=== PATIENT | male | born 1940 | race Caucasian/White ===

== ENCOUNTER 2016-06-28 17:13 | Inpatient (IN) | payer MEDICARE, BC ==
--- NOTE | 2016-06-28 18:24 | EDM.PDOC ---
ED HPI Trauma - General Chief Complaint: Lower Extremity Injury/Pain Stated Complaint: SWOLLEN L FOOT Time Seen by Provider: 06/28/16 18:18 Source: Reports: Patient History Limitations: Reports: No limitations - History of Present Illness INITIAL COMMENTS - FREE TEXT/NARRATIVE: pt arrived with a markrdly swollen left leg. He was walking about 1 week ago and he felt something snap in his left thigh. The leg got very black and blue nd has grdually gotten better. He now has alot of swelling in the lower left leg. Occurred When: last week Occurred Where: home Method of Injury: unknown Severity: moderate Pain/Injury Location: Reports: lower extremity, right Consciousness: Reports: no loss of consciousness Associated Symptoms: Reports: denies other symptoms Allergies/ADRs: Allergies No Known Allergies Allergy (Verified 08/07/15 14:58) Home Medications: Ambulatory Orders Aspirin [Halfprin] 81 mg PO BEDTIME 07/22/15 [Confirmed 06/28/16] Enalapril Maleate [Vasotec] 20 mg PO BEDTIME 07/22/15 [Confirmed 06/28/16] Terazosin HCl [Terazosin] 5 mg PO BEDTIME 07/22/15 [Confirmed 06/28/16] Past Medical History HEENT History: Reports: Impaired vision Cardiovascular History: Reports: Hypertension, Pacemaker Gastrointestinal History: Reports: GERD Genitourinary History: Reports: BPH Other Genitourinary History: slow urination - Infectious Disease History Infectious Disease History: Reports: Chicken pox, Measles, Mumps - Past Surgical History HEENT Surgical History: Reports: Cataract surgery, Oral surgery GI Surgical History: Reports: Appendectomy, Hernia, inguinal Social & Family History - Family History Cardiac: Reports: CAD - Tobacco Use Smoking Status *Q: Former Smoker - Caffeine Use Caffeine Use: Reports: Coffee - Alcohol Use Days Per Week of Alcohol Use: 1 Number of Drinks Per Day: 1 Total Drinks Per Week: 1 - Recreational Drug Use Recreational Drug Use: No Review of Systems - Review of Systems Review Of Systems: See Below Constitutional: Reports: no symptoms Eyes: Reports: no symptoms Ears: Reports: no symptoms Nose: Reports: no symptoms Mouth/Throat: Reports: no symptoms Respiratory: Reports: No Symptoms Cardiovascular: Reports: no symptoms GI/Abdominal: Reports: No symptoms Genitourinary: Reports: no symptoms Musculoskeletal: Reports: other (pain and swelling in the left leg. ) Skin: Reports: no symptoms Neurological: Reports: No Symptoms Psychiatric: Reports: no symptoms Trauma Exam - Physical Exam Exam: See Below Text/Narrative:: pt arrived with a history of a swollen left leg. pt had a ripping sensation in his thigh area on the left about 1 week ago and he became very bruised. He now has become swollen in the entire leg. Exam Limited By: No limitations General Appearance: Reports: alert, anxious Head: Reports: atraumatic Eyes: bilateral eye: EOMI, normal inspection, PERRL Ears: Reports: normal TMs Nose: Reports: normal inspection Throat/Mouth: Reports: Normal inspection Neck: Reports: non-tender Respiratory Exam: Reports: no respiratory distress Cardiovascular: Reports: regular rate, rhythm GI/Abdominal: Reports: soft, non tender (Male) Exam: Deferred Rectal (Males) Exam: Deferred Back: Reports: normal inspection Extremities: Reports: other (left leg is markedly swollen. ) Neurologic: Reports: alert, oriented x 3 Course - Vital Signs Last Recorded V/S: Last Vital Signs Temp 37.1 C 06/28/16 17:25 Pulse 107 H 06/28/16 17:25 Resp 16 06/28/16 17:25 BP 186/97 H 06/28/16 17:25 Pulse Ox 98 06/28/16 17:25 - Orders/Labs/Meds Orders: Active Orders 24 hr Category Date Time Status Chest 2V [CR] Stat Exams 06/28/16 19:05 Taken VL Duplex Lwr Ext Veins Ltd Lt [US] Stat Exams 06/28/16 18:17 Taken Sodium Chloride 0.9% [Normal Saline] 1,000 ml Med 06/28/16 19:00 Active IV ASDIRECTED Sodium Chloride 0.9% [Saline Flush] Med 06/28/16 19:00 Active 10 ml FLUSH ASDIRECTED PRN Saline Lock Insert [OM.PC] Routine Oth 06/28/16 19:00 Ordered Medication Orders Sodium Chloride (Normal Saline) 1,000 mls @ 150 mls/hr IV ASDIRECTED ELVIN Sodium Chloride (Saline Flush) 10 ml FLUSH ASDIRECTED PRN PRN Reason: Keep Vein Open Labs: Laboratory Tests 06/28/16 06/28/16 Range/Units 18:27 18:27 WBC 5.9 (4.5-11.0) K/uL RBC 4.01 L (4.30-5.90) M/uL Hgb 11.4 L (12.0-15.0) g/dL Hct 35.0 L (40.0-54.0) % MCV 87 (80-98) fL MCH 28 (27-31) pg MCHC 33 (32-36) % Plt Count 276 (150-400) K/uL Neut % (Auto) 62 (36-66) % Lymph % (Auto) 21 L (24-44) % Bee % (Auto) 12 H (2-6) % Eos % (Auto) 5 H (2-4) % Baso % (Auto) 0 (0-1) % Sodium 139 L (140-148) mmol/L Potassium 3.9 (3.6-5.2) mmol/L Chloride 103 (100-108) mmol/L Carbon Dioxide 27 (21-32) mmol/L Anion Gap 12.9 (5.0-14.0) mmol/L BUN 18 (7-18) mg/dL Creatinine 1.4 H (0.8-1.3) mg/dL Est Cr Clr Drug Dosing 44.19 mL/min Estimated GFR (MDRD) 49 L (>60) Glucose 102 (74-106) mg/dL Calcium 8.2 L (8.5-10.1) mg/dL Total Bilirubin 0.6 (0.2-1.0) mg/dL AST 32 (15-37) U/L ALT 24 (12-78) U/L Alkaline Phosphatase 111 (46-116) U/L Total Protein 7.3 (6.4-8.2) g/dL Albumin 2.8 L (3.4-5.0) g/dL Globulin 4.5 H (2.3-3.5) g/dL Albumin/Globulin Ratio 0.6 L (1.2-2.2) Meds: Medications Generic Name Dose Route Start Last Admin Trade Name Freq PRN Reason Stop Dose Admin Sodium Chloride 1,000 mls @ 150 mls/hr 06/28/16 19:00 Normal Saline IV ASDIRECTED ELVIN Sodium Chloride 10 ml 06/28/16 19:00 Saline Flush FLUSH ASDIRECTED PRN Keep Vein Open - Re-Assessments/Exams Free Text/Narrative Re-Assessment/Exam: 06/28/16 19:44 creatnine is 1.4 and his gfr is 49. He had an US which revealed a clot the full length of the leg. Departure - Departure Time of Disposition: 19:45 Disposition: Admitted As Inpatient 65 Condition: fair Clinical Impression: DVT (deep venous thrombosis), Renal insufficiency, mild Forms: ED Department Discharge Care Plan Goals: admit to [facility] - My Orders Last 24 Hours: My Active Orders 06/28/16 18:17 VL Duplex Lwr Ext Veins Ltd Lt [US] Stat 06/28/16 19:00 Sodium Chloride 0.9% [Normal Saline] 1,000 ml IV ASDIRECTED Sodium Chloride 0.9% [Saline Flush] 10 ml FLUSH ASDIRECTED PRN Saline Lock Insert [OM.PC] Routine 06/28/16 19:05 Chest 2V [CR] Stat - Assessment/Plan Last 24 Hours: My Active Orders 06/28/16 18:17 VL Duplex Lwr Ext Veins Ltd Lt [US] Stat 06/28/16 19:00 Sodium Chloride 0.9% [Normal Saline] 1,000 ml IV ASDIRECTED Sodium Chloride 0.9% [Saline Flush] 10 ml FLUSH ASDIRECTED PRN Saline Lock Insert [OM.PC] Routine 06/28/16 19:05 Chest 2V [CR] Stat
[2016-06-28] MEDS ORDERED: Sodium Chloride 0.9% 1,000 ML IV SCH (19:00)
[2016-06-28] MEDS ORDERED: Sodium Chloride 0.9% 10 ML Syringe FLUSH PRN (19:00)
[2016-06-28] MEDS ORDERED: Morphine 2 MG/ML Syringe IVPUSH PRN (20:57)
[2016-06-28] MEDS ORDERED: Heparin Sodium 5,000 Units/ML Vial IVPUSH ONE (20:57)
[2016-06-28] MEDS ORDERED: Bisacodyl 5 MG Tab PO PRN (20:57)
[2016-06-28] MEDS ORDERED: Albuterol 0.083% 2.5 MG/3 ML Neb Soln NEB PRN (20:57)
[2016-06-28] MEDS ORDERED: Temazepam 15 MG Cap PO PRN (20:57)
[2016-06-28] MEDS ORDERED: LORazepam 2 MG/ML MDV IV PRN (20:57)
[2016-06-28] MEDS ORDERED: Acetaminophen 325 MG Tab PO PRN (20:57)
[2016-06-28] MEDS ORDERED: Ondansetron 4 MG Tab.DIS PO PRN (20:57)
[2016-06-28] MEDS ORDERED: Docusate Sodium 100 MG Cap PO PRN (20:57)
[2016-06-28] MEDS ORDERED: oxyCODONE 5 MG Tab PO PRN (20:57)
[2016-06-28] MEDS: Terazosin 5 MG Cap PO SCH (22:59)
[2016-06-28] MEDS: Sodium Chloride 0.9% 1,000 ML IV SCH (23:00)
[2016-06-28] MEDS: Enalapril 5 MG Tab ONE ×2 (23:00→23:04)
--- NOTE | 2016-06-28 23:29 | PCM.HP ---
H&P History of Present Illness - General Admit Problem/Dx: Admission Diagnosis/Problem Admission Diagnosis/Problem DVT, Deep venous thrombosis of lower extremity Source of Information: Patient, Family () History Limitations: Reports: No limitations - History of Present Illness Initial Comments - Free Text/Narative: pt arrived with a markrdly swollen left leg. He was walking about 1 week ago and he felt something snap in his left thigh. The leg got very black and blue and has gradually gotten better. He now has a lot of swelling in the lower left leg. Occurred When: last week 06/28/16 19:44 creatnine is 1.4 and his gfr is 49. He had an US which revealed a clot the full length of the leg. Plan admit to hospital Duration of Symptoms: Reports: Getting worse Location: Reports: lower extremity, left Quality: Reports: Pressure Severity: mild Improves with: Reports: None Worsens with: Reports: None Context: Reports: other (Reports injury 7-10 days ago) Associated Symptoms: Reports: denies other symptoms - Related Data Allergies/Adverse Reactions: Allergies Allergy/AdvReac Type Severity Reaction Status Date / Time No Known Allergies Allergy Verified 08/07/15 14:58 Home Medications: Home Meds Aspirin [Halfprin] 81 mg PO BEDTIME 07/22/15 [History] Enalapril Maleate [Vasotec] 20 mg PO BEDTIME 07/22/15 [History] Terazosin HCl [Terazosin] 5 mg PO BEDTIME 07/22/15 [History] Past Medical History HEENT History: Reports: Impaired vision Cardiovascular History: Reports: Hypertension, Pacemaker Gastrointestinal History: Reports: GERD Genitourinary History: Reports: BPH Other Genitourinary History: slow urination - Infectious Disease History Infectious Disease History: Reports: Chicken pox, Measles, Mumps - Past Surgical History HEENT Surgical History: Reports: Cataract surgery, Oral surgery GI Surgical History: Reports: Appendectomy, Hernia, inguinal Social & Family History - Family History Cardiac: Reports: CAD - Tobacco Use Smoking Status *Q: Former Smoker - Caffeine Use Caffeine Use: Reports: Coffee - Alcohol Use Days Per Week of Alcohol Use: 1 Number of Drinks Per Day: 1 Total Drinks Per Week: 1 - Recreational Drug Use Recreational Drug Use: No H&P Review of Systems - Review of Systems: Review Of Systems: See Below General: Reports: no symptoms HEENT: Reports: no symptoms Pulmonary: Reports: No Symptoms Cardiovascular: Reports: no symptoms Gastrointestinal: Reports: No symptoms Genitourinary: Reports: no symptoms Musculoskeletal: Reports: no symptoms Skin: Reports: other (Clear discharge from tiny red wounds of the left lower leg ) Psychiatric: Reports: no symptoms Neurological: Reports: No Symptoms Hematologic/Lymphatic: Reports: no symptoms Immunologic: Reports: no symptoms Exam - Exam Exam: See Below - Vital Signs Vital Signs: Last Vital Signs Temp 37.3 C 06/28/16 21:00 Pulse 102 H 06/28/16 21:00 Resp 16 06/28/16 21:00 BP 158/102 H 06/28/16 22:59 Pulse Ox 98 06/28/16 21:00 Weight: 84.9 kg - Exam General: alert, oriented, cooperative HEENT: PERRLA, Conjunctiva clear, EACs clear, EOMI, Hearing intact, Mucosa moist & pink, Nares patent, Normal nasal septum, Posterior pharynx clear, Pupils equal, Pupils reactive, Other (Dentures are noted) Neck: supple, trachea midline, 2 Lungs: Clear to auscultation, Normal respiratory effort Cardiovascular: regular rate, regular rhythm, other (Pacemaker noted left upper chest) Abdomen: normal bowel sounds, soft Back Exam: normal inspection, full range of motion Extremities: other (Left leg 2 times the size of the right, skin is tense, clear discharge from red areas of the left lower leg. Pulses in the foot intact and equal to that of the right) Peripheral Pulses: 2+: dorsalis pedis (L), dorsalis pedis (R) Skin: warm, dry, petechia (Left lower leg), other (Clear discharge left lower leg) Neurological: strength equal bilateral Psychiatric: alert, normal affect, normal mood - Patient Data Lab Results last 24 hrs: Laboratory Results - last 24 hr 06/28/16 Range/Units 21:19 PT 11.8 (9.5-12.0) sec INR 1.11 (0.80-1.20) Result Diagrams: 06/28/16 18:27 06/28/16 18:27 *Q Meaningful Use (ADM) - VTE *Q VTE Criteria *Q: - Stroke *Q Stroke Criteria *Q: - AMI *Q AMI Criteria *Q: - Problem List (1) DVT (deep venous thrombosis) SNOMED Code(s): 689195194 ICD Code: I82.409 - ACUTE EMBOLISM AND THOMBOS UNSP DEEP VN UNSP LOWER EXTREMITY Status: Acute Priority: High Current Visit: Yes Qualifiers: DVT location: lower extremity Affected thrombotic vein of extremity: unspecified lower extremity distal vein Laterality: left Chronicity: acute Qualified Code(s): I82.4Z2 - Acute embolism and thrombosis of unspecified deep veins of left distal lower extremity Problem List Initiated/Reviewed/Updated: Yes Orders Last 24hrs: Active Orders 24 hr Category Date Time Status Patient Status [ADT] Routine ADT 06/28/16 20:57 Active Bedrest Bathroom Privileges [RC] ASDIRECTED Care 06/28/16 20:57 Active Cardiac Monitoring [RC] .As Directed Care 06/28/16 20:57 Active Intake and Output [RC] QSHIFT Care 06/28/16 20:57 Active Oxygen Therapy [RC] PRN Care 06/28/16 20:57 Active RT Aerosol Therapy [RC] ASDIRECTED Care 06/28/16 20:57 Active VTE/DVT Education [RC] PER UNIT ROUTINE Care 06/28/16 20:57 Active Vital Signs [RC] Q4H Care 06/28/16 20:57 Active Regular Diet [DIET] Diet 06/28/16 Breakfast Active Ang Chest [CT] Routine Exams 06/29/16 09:10 Ordered BASIC METABOLIC PANEL,BMP [CHEM] AM Lab 06/29/16 05:11 Ordered Guaiac [OCCULT BLOOD DIAGNOSTIC] [OP] Routine Lab 06/28/16 21:55 Uncollected INR,PT,PROTHROMBIN TIME [COAG] AM Lab 06/29/16 05:11 Ordered UA W/MICROSCOPIC [URIN] Routine Lab 06/28/16 21:56 Ordered Acetaminophen [Tylenol] Med 06/28/16 20:57 Active 650 mg PO Q4H PRN Albuterol [Proventil Neb Soln] Med 06/28/16 20:57 Active 2.5 mg NEB Q4H PRN Bisacodyl [Dulcolax] Med 06/28/16 20:57 Active 5 mg PO DAILY PRN Docusate Sodium [Colace] Med 06/28/16 20:57 Active 100 mg PO BID PRN Docusate Sodium/Sennosides [Senna Plus] Med 06/28/16 20:57 Active 1 tab PO BID PRN Enalapril [Vasotec] Med 06/28/16 21:00 Active 20 mg PO BEDTIME Heparin Sodium/D5W [Heparin 25,000 Units in D5W 500 ML] Med 06/28/16 20:57 Active 25,000 units in 500 ml IV TITRATE LORazepam [Ativan] Med 06/28/16 20:57 Active 1 mg IV Q6H PRN Morphine Med 06/28/16 20:57 Active 2 mg IVPUSH Q2H PRN Ondansetron [Zofran ODT] Med 06/28/16 20:57 Active 4 mg PO Q6H PRN Sodium Chloride 0.9% [Normal Saline] 1,000 ml Med 06/28/16 20:57 Active IV ASDIRECTED Temazepam [Restoril] Med 06/28/16 20:57 Active 15 mg PO BEDTIME PRN Terazosin [Hytrin] Med 06/28/16 21:00 Active 5 mg PO BEDTIME oxyCODONE Med 06/28/16 20:57 Active 5 mg PO Q4H PRN Resuscitation Status Routine Resus Stat 06/28/16 20:05 Ordered Medication Orders Acetaminophen (Tylenol) 650 mg PO Q4H PRN PRN Reason: Pain (Mild 1-3)/fever Albuterol (Proventil Neb Soln) 2.5 mg NEB Q4H PRN PRN Reason: Shortness Of Breath/wheezing Bisacodyl (Dulcolax) 5 mg PO DAILY PRN PRN Reason: Constipation Docusate Sodium (Colace) 100 mg PO BID PRN PRN Reason: Constipation Enalapril Maleate (Vasotec) 20 mg PO BEDTIME ELVIN Last Admin: 06/28/16 23:04 Dose: Not Given Heparin Sodium/Dextrose (Heparin 25,000 Units In D5w 500 Ml) 25,000 units in 500 mls @ 25.47 mls/hr IV TITRATE ELVIN; 15 UNITS/KG/HR PRN Reason: Protocol Sodium Chloride (Normal Saline) 1,000 mls @ 100 mls/hr IV ASDIRECTED ELVIN Last Admin: 06/28/16 23:00 Dose: 100 mls/hr Lorazepam (Ativan) 1 mg IV Q6H PRN PRN Reason: Nausea/Vomiting Morphine Sulfate (Morphine) 2 mg IVPUSH Q2H PRN PRN Reason: Pain (severe 7-10) Ondansetron HCl (Zofran Odt) 4 mg PO Q6H PRN PRN Reason: Nausea able to take PO Oxycodone HCl (Oxycodone) 5 mg PO Q4H PRN PRN Reason: Pain (moderate 4-6) Senna/Docusate Sodium (Senna Plus) 1 tab PO BID PRN PRN Reason: Constipation Sodium Chloride (Saline Flush) 10 ml FLUSH ASDIRECTED PRN PRN Reason: Keep Vein Open Last Admin: 06/28/16 19:52 Dose: 10 ml Temazepam (Restoril) 15 mg PO BEDTIME PRN PRN Reason: Sleep Terazosin HCl (Hytrin) 5 mg PO BEDTIME [facility] Last Admin: 06/28/16 22:59 Dose: 5 mg Assessment/Plan Comment:: ASSESSMENT / PLAN -This is a 76 year old male present to ER with complaints of leg edema, started about 7 to 10 days ago, he decided to come to the hospital/ER for further care and treatment. He reports was walking about 7 to 10 days ago, when felt a "tearing sensation" in the left leg. area was black and blue, this resolved, then about 2 days ago, started to have swelling. leg is not painful, denies any chest pain or shortness of breath. In ER had a venous doppler, which show an emboli extending from ankle to thigh. Plan -Admit to [address] [place] [address] for further monitoring diagnosis; DVT -Heparin drip started with bolus, then wt bases protocol. -Telemetry -IV fluids for rehydration NS at 100 mL per hour -Advise to notify nurses of any chest pain or other symptoms -Order for a serial Ptt, INR - a.m. labs: CBC, BMP, inr, ptt - chest ct angio in am Maintenance issues -Orders home meds: htn -Nutrition: Regular diet -Coy catheter not indicated at this time -DVT: heparin iv drip per protocol -GI prophalix; Protonix po daily CODE STATUS: Full Admission status: Admit to [address] [place] [address] Admission justification. This patient will be admitted for inpatient services and is medically appropriate meeting medical necessity for inpatient admission as outlined in my documentation. I reasonably expect the patient will require inpatient services that span. Time over 2 midnights. I reasonably expect this patient to be discharged or transferred within 96 hours after admission to the critical access hospital Disposition;home with , Zee Primary care provider:Dr. Daniel Beyer
[2016-06-28] MEDS ORDERED: Heparin Sodium 5,000 Units/ML Vial ONE (23:45)
[2016-06-28] MEDS: Heparin Sodium/D5W 25,000 UNITS/500 ML BAG IV SCH (23:54)
[2016-06-29] MEDS: Sodium Chloride 0.9% 1,000 ML IV SCH (05:50)
[2016-06-29] MEDS: Heparin Sodium 5,000 Units/ML Vial IVPUSH PRN ×2 (06:40→13:41)
[2016-06-29] MEDS ORDERED: Pantoprazole 40 MG Vial IVPUSH SCH (07:30)
--- NOTE | 2016-06-29 08:53 | CR ---
Heart size within normal limits. AICD device with 2 leads. Right lung is clear. Streaky density with in the lingula could indicate atelectasis only. Developing infiltrate not excluded.
--- NOTE | 2016-06-29 10:00 | PCM.PN ---
- General Info Date of Service: 06/29/16 Functional Status: Reports: pain controlled, tolerating diet - Review of Systems Pulmonary: Reports: shortness of breath Musculoskeletal: Reports: leg pain Systems Review Comment:: No acute events since the time of admission. No significant left leg pain but still has significant left leg swelling. No bleeding issues while on the heparin. Blood pressure and heart rate have been stable. He does not require supplemental oxygen. No complaints of chest pain or shortness of breath. - Patient Data Vitals - most recent: Last Vital Signs Temp 37.3 C 06/29/16 05:00 Pulse 95 06/29/16 05:00 Resp 18 06/29/16 05:00 BP 132/87 06/29/16 05:00 Pulse Ox 95 06/29/16 05:00 Weight - most recent: 82.282 kg I&O - last 24 hours: Intake & Output 06/28/16 06/29/16 06/29/16 22:59 06:59 14:59 Intake Total 938 458 Output Total 50 500 200 Balance -50 438 258 Lab Results last 24 hrs: Laboratory Results - last 24 hr 06/28/16 06/28/16 06/29/16 Range/Units 21:19 21:56 05:53 PT 11.8 (9.5-12.0) sec INR 1.11 (0.80-1.20) APTT (27.0-36.0) sec Sodium 140 (140-148) mmol/L Potassium 4.1 (3.6-5.2) mmol/L Chloride 106 (100-108) mmol/L Carbon Dioxide 25 (21-32) mmol/L Anion Gap 9.3 (5.0-14.0) mmol/L BUN 16 (7-18) mg/dL Creatinine 1.2 (0.8-1.3) mg/dL Est Cr Clr Drug Dosing 51.38 mL/min Estimated GFR (MDRD) 59 L (>60) Glucose 102 (74-106) mg/dL Calcium 7.9 L (8.5-10.1) mg/dL Urine Color Yellow Urine Appearance Clear Urine pH 5.0 (4.5-8.0) Ur Specific [place] 1.020 (1.008-1.030) Urine Protein Negative (NEGATIVE) mg/dL Urine Glucose (UA) Normal (NEGATIVE) mg/dL Urine Ketones 15 H (NEGATIVE) mg/dL Urine Occult Blood Negative (NEGATIVE) Urine Nitrite Negative (NEGAITVE) Urine Bilirubin Negative (NEGATIVE) Urine Urobilinogen 4 (NORMAL) mg/dL Ur Leukocyte Esterase Negative (NEGATIVE) Urine RBC 0-5 (0-5) Urine WBC 0-5 (0-5) Ur Epithelial Cells Rare Amorphous Sediment Not seen Urine Bacteria Few Urine Mucus Not seen 06/29/16 Range/Units 05:53 PT 12.2 H (9.5-12.0) sec INR 1.15 (0.80-1.20) APTT 44.0 H (27.0-36.0) sec Sodium (140-148) mmol/L Potassium (3.6-5.2) mmol/L Chloride (100-108) mmol/L Carbon Dioxide (21-32) mmol/L Anion Gap (5.0-14.0) mmol/L BUN (7-18) mg/dL Creatinine (0.8-1.3) mg/dL Est Cr Clr Drug Dosing mL/min Estimated GFR (MDRD) (>60) Glucose (74-106) mg/dL Calcium (8.5-10.1) mg/dL Urine Color Urine Appearance Urine pH (4.5-8.0) Ur Specific [place] (1.008-1.030) Urine Protein (NEGATIVE) mg/dL Urine Glucose (UA) (NEGATIVE) mg/dL Urine Ketones (NEGATIVE) mg/dL Urine Occult Blood (NEGATIVE) Urine Nitrite (NEGAITVE) Urine Bilirubin (NEGATIVE) Urine Urobilinogen (NORMAL) mg/dL Ur Leukocyte Esterase (NEGATIVE) Urine RBC (0-5) Urine WBC (0-5) Ur Epithelial Cells Amorphous Sediment Urine Bacteria Urine Mucus Shorty Results last 24 hrs: Microbiology 06/29/16 08:23 Stool Occult Blood (SHORTY) - Final Stool / Feces NEGATIVE OCCULT BLOOD Med Orders - Current: Current Medications Acetaminophen (Tylenol) 650 mg PO Q4H PRN PRN Reason: Pain (Mild 1-3)/fever Albuterol (Proventil Neb Soln) 2.5 mg NEB Q4H PRN PRN Reason: Shortness Of Breath/wheezing Bisacodyl (Dulcolax) 5 mg PO DAILY PRN PRN Reason: Constipation Docusate Sodium (Colace) 100 mg PO BID PRN PRN Reason: Constipation Enalapril Maleate (Vasotec) 20 mg PO BEDTIME ELVIN Last Admin: 06/28/16 23:04 Dose: Not Given Heparin Sodium (Porcine) (Heparin Sodium) 0 units IVPUSH .BOLUS PRN; Protocol PRN Reason: Other Last Admin: 06/29/16 06:40 Dose: 2,500 units Heparin Sodium/Dextrose (Heparin 25,000 Units In D5w 500 Ml) 25,000 units in 500 mls @ 25.47 mls/hr IV TITRATE ELVIN; 15 UNITS/KG/HR PRN Reason: Protocol Last Titration: 06/29/16 06:43 Dose: 18 units/kg/hr, 29.621 mls/hr Sodium Chloride (Normal Saline) 1,000 mls @ 25 mls/hr IV ASDIRECTED ELVIN Last Admin: 06/29/16 05:50 Dose: 100 mls/hr Lorazepam (Ativan) 1 mg IV Q6H PRN PRN Reason: Nausea/Vomiting Morphine Sulfate (Morphine) 2 mg IVPUSH Q2H PRN PRN Reason: Pain (severe 7-10) Ondansetron HCl (Zofran Odt) 4 mg PO Q6H PRN PRN Reason: Nausea able to take PO Oxycodone HCl (Oxycodone) 5 mg PO Q4H PRN PRN Reason: Pain (moderate 4-6) Pantoprazole Sodium (Protonix) 40 mg PO ACBREAKFAST ELVIN Senna/Docusate Sodium (Senna Plus) 1 tab PO BID PRN PRN Reason: Constipation Sodium Chloride (Saline Flush) 10 ml FLUSH ASDIRECTED PRN PRN Reason: Keep Vein Open Last Admin: 06/28/16 19:52 Dose: 10 ml Temazepam (Restoril) 15 mg PO BEDTIME PRN PRN Reason: Sleep Terazosin HCl (Hytrin) 5 mg PO BEDTIME [facility] Last Admin: 06/28/16 22:59 Dose: 5 mg Discontinued Medications Enalapril Maleate (Vasotec) Confirm Administered Dose 20 mg .ROUTE .STK-MED ONE Stop: 06/28/16 22:54 Last Admin: 06/28/16 23:04 Dose: 20 mg Heparin Sodium (Porcine) (Heparin Sodium) 5,000 units IVPUSH ONETIME ONE Stop: 06/28/16 20:58 Last Admin: 06/28/16 23:51 Dose: 5,000 units Heparin Sodium (Porcine) (Heparin Sodium) Confirm Administered Dose 5,000 units .ROUTE .STK-MED ONE Stop: 06/28/16 23:46 Last Admin: 06/29/16 00:03 Dose: Not Given Sodium Chloride (Normal Saline) 1,000 mls @ 150 mls/hr IV ASDIRECTED [facility] Last Admin: 06/28/16 19:50 Dose: 150 mls/hr Pantoprazole Sodium (Protonix Iv) 40 mg IVPUSH DAILY@0730 [facility] Last Admin: 06/29/16 08:08 Dose: 40 mg - Exam Quality Assessment: No: supplemental oxygen General: alert, oriented, cooperative, no acute distress Neck: supple Lungs: Normal respiratory effort Cardiovascular: Regular Rate, Regular Rhythm Extremities: edema (pitting edema left leg from foot to thigh) Skin: warm, dry Psy/Mental Status: alert, normal affect - Problem List & Annotations (1) DVT (deep venous thrombosis) SNOMED Code(s): 451250947 Code(s): I82.409 - ACUTE EMBOLISM AND THOMBOS UNSP DEEP VN UNSP LOWER EXTREMITY Status: Acute Priority: High Current Visit: Yes Qualifiers: DVT location: lower extremity Affected thrombotic vein of extremity: femoral Laterality: left Chronicity: acute Qualified Code(s): I82.412 - Acute embolism and thrombosis of left femoral vein - Problem List Review Problem List Initiated/Reviewed/Updated: Yes - My Orders Last 24 Hours: My Active Orders 06/29/16 06:31 Heparin Sodium See Protocol IVPUSH .BOLUS PRN 06/29/16 12:45 PTT,PARTIAL THROMBOPLSTIN TIME [COAG] Routine 06/29/16 13:00 Warfarin [Coumadin] 7.5 mg PO ONETIME ONE 06/30/16 05:00 CBC W/O DIFF,HEMOGRAM [HEME] Timed (1) INR,PT,PROTHROMBIN TIME [COAG] Timed 06/30/16 07:30 Pantoprazole [Protonix] 40 mg PO ACBREAKFAST 06/30/16 13:00 Warfarin [Coumadin] 5 mg PO DAILY@1300 - Plan Plan:: ASSESSMENT AND PLAN - ACUTE PROVOKED LEFT LEG DVT - long car ride approximately one month prior to onset of symptoms could suggest clot that has progressed over that time. No symptoms to suggest malignancy. No history of previous clotting issues. -Heparin drip x48 hours then transitioned to enoxaparin -Telemetry -IV fluids @TKO -start warfarin (7.5 mg today then 5 mg daily) anticipate 3-6 months of therapy -CBC, INR in the morning HTN - blood pressure well controlled. -continue home medications Maintenance issues -Nutrition: Regular diet -Coy catheter not indicated at this time -DVT: heparin iv drip per protocol -GI prophalix; Pantoprazole daily Disposition - anticipate d/c home with , Zee Hall MD
[2016-06-29] MEDS ORDERED: Iopamidol 755 Mg/ML 100 ML Bottle IV SCH (10:45)
[2016-06-29] MEDS ORDERED: Sodium Chloride 0.9% 100 ML IV SCH (10:45)
[2016-06-29] MEDS ORDERED: Warfarin 2.5 MG Tab PO ONE (13:00)
[2016-06-29] MEDS ORDERED: Warfarin 5 MG Tab PO ONE (13:00)
[2016-06-29] MEDS: Heparin Sodium/D5W 25,000 UNITS/500 ML BAG IV SCH (17:46)
[2016-06-29] MEDS: Terazosin 5 MG Cap PO SCH (20:50)
[2016-06-30] MEDS ORDERED: Sodium Chloride 0.9% 500 ML IV ONE ×2 (05:50→20:00)
[2016-06-30] MEDS: Pantoprazole 40 MG Tab.CR PO SCH (07:15)
[2016-06-30] MEDS: Heparin Sodium/D5W 25,000 UNITS/500 ML BAG IV SCH (10:02)
--- NOTE | 2016-06-30 10:52 | PCM.PN ---
- General Info Date of Service: 06/30/16 Functional Status: Reports: pain controlled, tolerating diet, ambulating - Review of Systems Cardiovascular: Reports: Edema Systems Review Comment:: no acute events overnight. Left leg pain and swelling have improved since the time of admission. No complaints of chest pain or shortness of breath. Appetite has been good. No difficulty walking to the bathroom and back. Tolerating heparin infusion with no bleeding issues. - Patient Data Vitals - most recent: Last Vital Signs Temp 36.6 C 06/30/16 07:00 Pulse 78 06/30/16 07:00 Resp 18 06/30/16 07:00 BP 127/89 06/30/16 07:00 Pulse Ox 95 06/30/16 07:00 Weight - most recent: 82.282 kg I&O - last 24 hours: Intake & Output 06/29/16 06/30/16 06/30/16 22:59 06:59 14:59 Intake Total 1381 670 240 Output Total 700 300 750 Balance 681 370 -510 Lab Results last 24 hrs: Laboratory Results - last 24 hr 06/29/16 06/29/16 06/30/16 Range/Units 12:45 19:57 01:47 WBC (4.5-11.0) K/uL RBC (4.30-5.90) M/uL Hgb (12.0-15.0) g/dL Hct (40.0-54.0) % MCV (80-98) fL MCH (27-31) pg MCHC (32-36) % Plt Count (150-400) K/uL PT (9.5-12.0) sec INR (0.80-1.20) APTT 53.9 H 81.1 H 134.7 H* (27.0-36.0) sec 06/30/16 06/30/16 06/30/16 Range/Units 08:48 08:48 08:48 WBC 5.3 (4.5-11.0) K/uL RBC 3.89 L (4.30-5.90) M/uL Hgb 10.8 L (12.0-15.0) g/dL Hct 34.1 L (40.0-54.0) % MCV 88 (80-98) fL MCH 28 (27-31) pg MCHC 32 (32-36) % Plt Count 262 (150-400) K/uL PT 12.2 H (9.5-12.0) sec INR 1.15 (0.80-1.20) APTT 112.7 H* (27.0-36.0) sec Shorty Results last 24 hrs: Microbiology 06/29/16 08:23 Stool Occult Blood (SHORTY) - Final Stool / Feces NEGATIVE OCCULT BLOOD Med Orders - Current: Current Medications Acetaminophen (Tylenol) 650 mg PO Q4H PRN PRN Reason: Pain (Mild 1-3)/fever Albuterol (Proventil Neb Soln) 2.5 mg NEB Q4H PRN PRN Reason: Shortness Of Breath/wheezing Bisacodyl (Dulcolax) 5 mg PO DAILY PRN PRN Reason: Constipation Docusate Sodium (Colace) 100 mg PO BID PRN PRN Reason: Constipation Enalapril Maleate (Vasotec) 20 mg PO BEDTIME [facility] Last Admin: 06/29/16 20:51 Dose: 20 mg Enoxaparin Sodium (Lovenox) 160 mg SUBCUT DAILY [facility] Enoxaparin Sodium (Lovenox) 80 mg SUBCUT ONETIME ONE Stop: 06/30/16 21:01 Heparin Sodium (Porcine) (Heparin Sodium) 0 units IVPUSH .BOLUS PRN; Protocol PRN Reason: Other Stop: 06/30/16 20:00 Last Admin: 06/29/16 13:41 Dose: 1,200 units Heparin Sodium/Dextrose (Heparin 25,000 Units In D5w 500 Ml) 25,000 units in 500 mls @ 25.47 mls/hr IV TITRATE [facility]; 15 UNITS/KG/HR PRN Reason: Protocol Stop: 06/30/16 20:00 Last Admin: 06/30/16 10:02 Dose: 15 units/kg/hr, 24.684 mls/hr Sodium Chloride (Normal Saline) 1,000 mls @ 25 mls/hr IV ASDIRECTED [facility] Stop: 06/30/16 20:00 Last Admin: 06/29/16 05:50 Dose: 100 mls/hr Sodium Chloride (Normal Saline) 500 mls @ 25 mls/hr IV .BOLUS ONE Stop: 07/01/16 15:59 Ondansetron HCl (Zofran Odt) 4 mg PO Q6H PRN PRN Reason: Nausea able to take PO Oxycodone HCl (Oxycodone) 5 mg PO Q4H PRN PRN Reason: Pain (moderate 4-6) Pantoprazole Sodium (Protonix) 40 mg PO ACBREAKFAST [facility] Last Admin: 06/30/16 07:15 Dose: 40 mg Senna/Docusate Sodium (Senna Plus) 1 tab PO BID PRN PRN Reason: Constipation Sodium Chloride (Saline Flush) 10 ml FLUSH ASDIRECTED PRN PRN Reason: Keep Vein Open Last Admin: 06/28/16 19:52 Dose: 10 ml Temazepam (Restoril) 15 mg PO BEDTIME PRN PRN Reason: Sleep Terazosin HCl (Hytrin) 5 mg PO BEDTIME [facility] Last Admin: 06/29/16 20:50 Dose: 5 mg Warfarin Sodium (Coumadin) 5 mg PO DAILY@1300 [facility] Discontinued Medications Enalapril Maleate (Vasotec) Confirm Administered Dose 20 mg .ROUTE .STK-MED ONE Stop: 06/28/16 22:54 Last Admin: 06/28/16 23:04 Dose: 20 mg Heparin Sodium (Porcine) (Heparin Sodium) 5,000 units IVPUSH ONETIME ONE Stop: 06/28/16 20:58 Last Admin: 06/28/16 23:51 Dose: 5,000 units Heparin Sodium (Porcine) (Heparin Sodium) Confirm Administered Dose 5,000 units .ROUTE .STK-MED ONE Stop: 06/28/16 23:46 Last Admin: 06/29/16 00:03 Dose: Not Given Sodium Chloride (Normal Saline) 1,000 mls @ 150 mls/hr IV ASDIRECTED [facility] Last Admin: 06/28/16 19:50 Dose: 150 mls/hr Sodium Chloride (Normal Saline) 100 mls @ 4 mls/sec IV ASDIRECTED [facility] Stop: 06/29/16 23:00 Sodium Chloride (Normal Saline) 500 mls @ 25 mls/hr IV .BOLUS ONE Stop: 07/01/16 01:49 Last Admin: 06/30/16 06:17 Dose: 25 mls/hr Iopamidol (Isovue-370 (76%)) 100 ml IV . DIRECTED [facility] Stop: 06/29/16 23:00 Lorazepam (Ativan) 1 mg IV Q6H PRN PRN Reason: Nausea/Vomiting Morphine Sulfate (Morphine) 2 mg IVPUSH Q2H PRN PRN Reason: Pain (severe 7-10) Pantoprazole Sodium (Protonix Iv) 40 mg IVPUSH DAILY@0730 [facility] Last Admin: 06/29/16 08:08 Dose: 40 mg Warfarin Sodium (Coumadin) 7.5 mg PO ONETIME ONE Stop: 06/29/16 13:01 Last Admin: 06/29/16 13:06 Dose: 7.5 mg - Exam Quality Assessment: No: supplemental oxygen General: alert, oriented, cooperative, no acute distress Lungs: Normal respiratory effort Cardiovascular: Regular Rate, Regular Rhythm Abdomen: soft, no distension Extremities: edema (pitting edema left leg to groin) Skin: warm, dry Psy/Mental Status: alert, normal affect - Problem List & Annotations (1) DVT (deep venous thrombosis) SNOMED Code(s): 442886400 Code(s): I82.409 - ACUTE EMBOLISM AND THOMBOS UNSP DEEP VN UNSP LOWER EXTREMITY Status: Acute Priority: High Current Visit: Yes Qualifiers: DVT location: lower extremity Affected thrombotic vein of extremity: femoral Laterality: left Chronicity: acute Qualified Code(s): I82.412 - Acute embolism and thrombosis of left femoral vein - Problem List Review Problem List Initiated/Reviewed/Updated: Yes - My Orders Last 24 Hours: My Active Orders 06/30/16 07:30 Pantoprazole [Protonix] 40 mg PO ACBREAKFAST 06/30/16 10:47 Discontinue Telemetry Monitoring [Cardiac Monitoring Discontinue] [RC] Click to Edit 06/30/16 13:00 Warfarin [Coumadin] 5 mg PO DAILY@1300 06/30/16 16:00 PTT,PARTIAL THROMBOPLSTIN TIME [COAG] Routine 06/30/16 20:00 Sodium Chloride 0.9% [Normal Saline] 500 ml IV .BOLUS 06/30/16 21:00 Enoxaparin [Lovenox] 80 mg SUBCUT ONETIME ONE 07/01/16 05:00 HEMOGLOBIN [HEME] Timed INR,PT,PROTHROMBIN TIME [COAG] Timed 07/01/16 09:00 Enoxaparin [Lovenox] 160 mg SUBCUT DAILY - Plan Plan:: ASSESSMENT AND PLAN - ACUTE PROVOKED LEFT LEG DVT - long car ride approximately one month prior to onset of symptoms could suggest clot that has progressed over that time. clinically improving with less than 48 hours of anticoagulation. -Heparin drip until 8 PM tonight then transition to enoxaparin -Enoxaparin 1 mg per kilogram tonight and 1.5 mg per kilogram starting tomorrow -discontinue Telemetry -IV fluids @TKO -warfarin 5 mg daily, anticipate 3-6 months of therapy -CBC, INR in the morning HTN - blood pressure well controlled. -continue home medications Maintenance issues -Nutrition: Regular diet -Coy catheter not indicated at this time -DVT: heparin iv drip per protocol -GI prophalix; Pantoprazole daily Disposition - anticipate d/c home with , Zee, possibly as early as tomorrow Dg Hall MD
[2016-06-30] MEDS: Warfarin 5 MG Tab PO SCH (12:40)
[2016-06-30] MEDS ORDERED: Enoxaparin 80 MG/0.8 ML Syringe SUBCUT ONE (21:00)
[2016-06-30] MEDS: Terazosin 5 MG Cap PO SCH (22:06)
[2016-07-01] MEDS: Pantoprazole 40 MG Tab.CR PO SCH (07:51)
[2016-07-01] MEDS ORDERED: Enoxaparin 120 MG/0.8 ML Syringe SUBCUT SCH (09:00)
[2016-07-01] MEDS ORDERED: Enoxaparin 100 MG/1 ML Syringe SUBCUT SCH (09:00)
[2016-07-01] MEDS ORDERED: Enoxaparin 80 MG/0.8 ML Syringe SUBCUT SCH (09:00)
[2016-07-01 10:29] VITALS: BP 114/84
[2016-07-01] MEDS: Warfarin 5 MG Tab PO SCH (13:27)
--- NOTE | 2016-07-01 14:03 | PCM.DCSUM1 ---
Discharge Summary - Hospital Course Brief History: healthy 76-year-old male who presented with left leg pain and swelling and was admitted for management of an acute left leg deep vein thrombosis - Discharge Data Discharge Date: 07/01/16 Discharge Disposition: Home, Self-Care 01 Condition: Good - Discharge Diagnosis/Problem(s) (1) DVT (deep venous thrombosis) SNOMED Code(s): 867513728 ICD Code: I82.409 - ACUTE EMBOLISM AND THOMBOS UNSP DEEP VN UNSP LOWER EXTREMITY Status: Acute Priority: High Current Visit: Yes Qualifiers: DVT location: lower extremity Affected thrombotic vein of extremity: femoral Laterality: left Chronicity: acute Qualified Code(s): I82.412 - Acute embolism and thrombosis of left femoral vein - Patient Summary/Data Hospital Course: West resented to the emergency room with left leg pain and swelling. Workup in the emergency room was suggestive of an acute left leg DVT extending from the calf all the way to the thigh. He was admitted to the hospital and started on a heparin infusion. Baseline blood samples were collected for INR with the plan to initiate warfarin as a long-term management plan. Over the next 2 days he tolerated the infusion well with no bleeding issues. He had noticeable improvement in the swelling and size of his left leg after just 24 hours of the heparin infusion. His vital signs including heart rate, respiratory rate and oxygenation all remained stable. After 48 hours of heparin infusion he was transitioned to enoxaparin. He tolerated this transition well and continued to have improvement in his left leg swelling. His swelling has not completely resolved but has improved significantly since the time of admission. His INR still subtherapeutic and the plan is to continue enoxaparin injections until after his INR has been therapeutic for 24 hours. At this point he is stable and feels comfortable with outpatient management. He will be discharged home with the plan to return tomorrow to receive enoxaparin injection and 1.5 mg per kilogram every 24 hours (120 mg dose). We will also check his INR tomorrow. He will come back Monday for the same regimen. Hopefully his INR will be nearly therapeutic at that point but he may need an additional injection on Monday. He'll be discharged with 5 mg of Coumadin daily. A referral to the Coumadin clinic through [facility] has been placed. He will be discharged to home with his with the plan for me to follow lab tests through the weekend and then he will go back to his primary care in the next one to 2 weeks. - Patient Instructions Diet: Regular Diet as Tolerated Activity: As Tolerated Showering/Bathing: May Shower Notify Provider of: Fever, Increased Pain Other/Special Instructions: 1. You were in the hospital for management of an acute left leg DVT (blood clot). I suspect this blood clot was provoked by a long car ride and you will need approximately 6 months of therapy to resolve this clot. Short term you will need at least 2 additional doses of enoxaparin ( blood thinning medication injected under the skin) and long-term you will be on warfarin once daily for approximately 6 months. Your dose at the time of discharge is 5 mg daily. We may need to adjust this dose slightly depending on your metabolism of the medication. I would recommend taking the medication in the evening with your blood pressure medication. 2. Referral to the Coumadin clinic at [facility] in [place]. Diagnosis is left leg DVT and duration of treatment is 6 months. 3. Please return to the emergency room registration desk tomorrow morning so you can have blood drawn to check your Coumadin level is as well as receive an injection of enoxaparin. You will need to do the same thing on Monday and possibly Monday but we will discuss that Monday morning. 4. Please seek medical attention if you have issues with bleeding you cannot stop, sudden onset of shortness of breath and/or chest pain or your left leg swelling gets worse. - Discharge Plan Prescriptions/Med Rec: Warfarin [Coumadin] 5 mg PO DAILY@1300 #30 tablet Home Medications: Home Meds Aspirin [Halfprin] 81 mg PO BEDTIME 07/22/15 [History] Enalapril Maleate [Vasotec] 20 mg PO BEDTIME 07/22/15 [History] Terazosin HCl [Terazosin] 5 mg PO BEDTIME 07/22/15 [History] Warfarin [Coumadin] 5 mg PO DAILY@1300 #30 tablet 07/01/16 [Rx] Patient Handouts: Warfarin: What You Need to Know, Deep Vein Thrombosis Referrals: Daniel Beyer MD [Primary Care Provider] - (1-2 weeks - followup hospital stay for left leg DVT) - Discharge Summary/Plan Comment DC Time >30 min.: No (25) - Patient Data Vitals - Most Recent: Last Vital Signs Temp 36.9 C 07/01/16 10:28 Pulse 82 07/01/16 10:28 Resp 18 07/01/16 10:28 BP 114/84 07/01/16 10:28 Pulse Ox 96 07/01/16 10:28 Weight - Most Recent: 82.282 kg I&O - Last 24 hours: Intake & Output 06/30/16 07/01/16 07/01/16 22:59 06:59 14:59 Intake Total 1712 643 Output Total 750 700 550 Balance 962 57 -550 Lab Results - Last 24 hrs: Laboratory Results - last 24 hr 06/30/16 07/01/16 07/01/16 Range/Units 15:56 06:06 06:06 Hgb 11.3 L (12.0-15.0) g/dL PT 13.9 H (9.5-12.0) sec INR 1.30 H (0.80-1.20) APTT 90.5 H* (27.0-36.0) sec Med Orders - Current: Current Medications Acetaminophen (Tylenol) 650 mg PO Q4H PRN PRN Reason: Pain (Mild 1-3)/fever Albuterol (Proventil Neb Soln) 2.5 mg NEB Q4H PRN PRN Reason: Shortness Of Breath/wheezing Bisacodyl (Dulcolax) 5 mg PO DAILY PRN PRN Reason: Constipation Docusate Sodium (Colace) 100 mg PO BID PRN PRN Reason: Constipation Enalapril Maleate (Vasotec) 20 mg PO BEDTIME [facility] Last Admin: 06/30/16 22:06 Dose: 20 mg Enoxaparin Sodium (Lovenox) 120 mg SUBCUT DAILY [facility] Last Admin: 07/01/16 08:43 Dose: 120 mg Sodium Chloride (Normal Saline) 500 mls @ 25 mls/hr IV .BOLUS ONE Stop: 07/01/16 15:59 Last Admin: 06/30/16 21:01 Dose: Not Given Ondansetron HCl (Zofran Odt) 4 mg PO Q6H PRN PRN Reason: Nausea able to take PO Oxycodone HCl (Oxycodone) 5 mg PO Q4H PRN PRN Reason: Pain (moderate 4-6) Pantoprazole Sodium (Protonix) 40 mg PO ACBREAKFAST [facility] Last Admin: 07/01/16 07:51 Dose: 40 mg Senna/Docusate Sodium (Senna Plus) 1 tab PO BID PRN PRN Reason: Constipation Sodium Chloride (Saline Flush) 10 ml FLUSH ASDIRECTED PRN PRN Reason: Keep Vein Open Last Admin: 06/28/16 19:52 Dose: 10 ml Temazepam (Restoril) 15 mg PO BEDTIME PRN PRN Reason: Sleep Terazosin HCl (Hytrin) 5 mg PO BEDTIME [facility] Last Admin: 06/30/16 22:06 Dose: 5 mg Warfarin Sodium (Coumadin) 5 mg PO DAILY@1300 [facility] Last Admin: 07/01/16 13:27 Dose: 5 mg Discontinued Medications Enalapril Maleate (Vasotec) Confirm Administered Dose 20 mg .ROUTE .STK-MED ONE Stop: 06/28/16 22:54 Last Admin: 06/28/16 23:04 Dose: 20 mg Enoxaparin Sodium (Lovenox) 80 mg SUBCUT ONETIME ONE Stop: 06/30/16 21:01 Last Admin: 06/30/16 22:06 Dose: 80 mg Enoxaparin Sodium (Lovenox) 160 mg SUBCUT DAILY [facility] Heparin Sodium (Porcine) (Heparin Sodium) 5,000 units IVPUSH ONETIME ONE Stop: 06/28/16 20:58 Last Admin: 06/28/16 23:51 Dose: 5,000 units Heparin Sodium (Porcine) (Heparin Sodium) Confirm Administered Dose 5,000 units .ROUTE .STK-MED ONE Stop: 06/28/16 23:46 Last Admin: 06/29/16 00:03 Dose: Not Given Heparin Sodium (Porcine) (Heparin Sodium) 0 units IVPUSH .BOLUS PRN; Protocol PRN Reason: Other Stop: 06/30/16 20:00 Last Admin: 06/29/16 13:41 Dose: 1,200 units Sodium Chloride (Normal Saline) 1,000 mls @ 150 mls/hr IV ASDIRECTED [facility] Last Admin: 06/28/16 19:50 Dose: 150 mls/hr Heparin Sodium/Dextrose (Heparin 25,000 Units In D5w 500 Ml) 25,000 units in 500 mls @ 25.47 mls/hr IV TITRATE [facility]; 15 UNITS/KG/HR PRN Reason: Protocol Stop: 06/30/16 20:00 Last Titration: 06/30/16 20:15 Dose: 0 units/kg/hr, 0 mls/hr Sodium Chloride (Normal Saline) 1,000 mls @ 25 mls/hr IV ASDIRECTED [facility] Stop: 06/30/16 20:00 Last Admin: 06/29/16 05:50 Dose: 100 mls/hr Sodium Chloride (Normal Saline) 100 mls @ 4 mls/sec IV ASDIRECTED [facility] Stop: 06/29/16 23:00 Sodium Chloride (Normal Saline) 500 mls @ 25 mls/hr IV .BOLUS ONE Stop: 07/01/16 01:49 Last Admin: 06/30/16 06:17 Dose: 25 mls/hr Iopamidol (Isovue-370 (76%)) 100 ml IV . DIRECTED [facility] Stop: 06/29/16 23:00 Lorazepam (Ativan) 1 mg IV Q6H PRN PRN Reason: Nausea/Vomiting Morphine Sulfate (Morphine) 2 mg IVPUSH Q2H PRN PRN Reason: Pain (severe 7-10) Pantoprazole Sodium (Protonix Iv) 40 mg IVPUSH DAILY@0730 [facility] Last Admin: 06/29/16 08:08 Dose: 40 mg Warfarin Sodium (Coumadin) 7.5 mg PO ONETIME ONE Stop: 06/29/16 13:01 Last Admin: 06/29/16 13:06 Dose: 7.5 mg *Q Meaningful Use (DIS) - VTE *Q VTE Criteria *Q: - Stroke *Q Stroke Criteria *Q: - AMI *Q AMI Criteria *Q:
== END 2016-07-01 15:05 | disposition home or self-care (01) | DRG 301 ==
LOC: JP.ED 17:13 → JP.MS 20:02
PROVIDERS: ADMIT Internal Medicine; ATTEND Internal Medicine
DX: I82.412 Acute embolism and thrombosis of left femoral vein (principal); I82.432 Acute embolism and thrombosis of left popliteal vein; I82.442 Acute embolism and thrombosis of left tibial vein; I10 Essential (primary) hypertension; N28.9 Disorder of kidney and ureter, unspecified; Z87.891 Personal history of nicotine dependence; N40.0 Benign prostatic hyperplasia without lower urinary tract symptoms; H54.7 Unspecified visual loss; Z95.0 Presence of cardiac pacemaker; Z79.82 Long term (current) use of aspirin; Z79.01 Long term (current) use of anticoagulants
CPT/HCPCS: 36415; 71020 ×2; 80053; 85025; 85730; 93971; 99285 ×2; J7040; J7050; 80048; 81001; 82272; 85018; 85027; 85610; A9270-GY; C9113; J1644; J1650